=== PATIENT | female | born 1975 | race Hispanic/Latino ===

== ENCOUNTER → 2022-01-25 | Day surgery (SDC) | payer OTHER ==
[~2022-01-25] MED LIST: FENTANYL CITRATE/PF 100MCG/2 ML INJ ONE; HAIR VITAMIN1 EACH PO; LIDOCAINE HCL 2% LOCAL INJ 5 ML SDV VIAL INJ ONE; MIDAZOLAM HCL 2 MG/2 ML VIAL ONE; OMEPRAZOLE40 MG PO; PROPOFOL IV EMULSION 10 MG/ML 20 ML VIAL ONE; VITAMIN D400 UNIT PO
[2022-01-25 14:50] VITALS: BP 108/75
== END | disposition home or self-care (01) ==
LOC: OR 10:56
PROVIDERS: ATTEND Internal Medicine Gastroenterology
DX: K21.9 Gastro-esophageal reflux disease without esophagitis (principal); K29.50 Unspecified chronic gastritis without bleeding; K31.A12 Gastric intestinal metaplasia without dysplasia, involving the body (corpus); K44.9 Diaphragmatic hernia without obstruction or gangrene; K20.90 Esophagitis, unspecified without bleeding; K31.89 Other diseases of stomach and duodenum; K59.09 Other constipation; Z71.3 Dietary counseling and surveillance; J45.909 Unspecified asthma, uncomplicated; Z71.89 Other specified counseling; Z01.812 Encounter for preprocedural laboratory examination; Z20.822 Contact with and (suspected) exposure to COVID-19; Z68.27 Body mass index [BMI] 27.0-27.9, adult; Z86.16 Personal history of COVID-19
CPT/HCPCS: 43239; 81025; C9113; J2001; J2250; J2704; J3010; U0002

== ENCOUNTER 2023-03-10 09:43 | Emergency (ER) | payer OTHER ==
[~2023-03-10] VITALS: Ht 154.9 cm; Wt 63.5 kg
[~2023-03-10 09:43] MED LIST changes: -FENTANYL CITRATE/PF 100MCG/2 ML INJ ONE; -LIDOCAINE HCL 2% LOCAL INJ 5 ML SDV VIAL INJ ONE; -MIDAZOLAM HCL 2 MG/2 ML VIAL ONE; -PROPOFOL IV EMULSION 10 MG/ML 20 ML VIAL ONE
[2023-03-10] MEDS ORDERED: KETOROLAC TROMETHAMINE 30 MG/ML VIAL IV STA (10:17)
[2023-03-10] MEDS ORDERED: ONDANSETRON HCL INJ 2MG/ML 2ML 2 MG/ML VIAL IV STA (10:17)
[2023-03-10 10:27] LABS: BASOPHILS % 0.1 % (0.0-1.0); EOSINOPHILS # (AUTO) 0.1 (0.0-0.4); EOSINOPHILS % 0.5 % (0.0-6.0); HEMATOCRIT 41.5 % (34.2-44.1); HEMOGLOBIN 14.2 g/dL (12.0-16.0); LYMPHOCYTES # (AUTO) 2.4 (1.0-3.2); LYMPHOCYTES % 24.5 % (18.0-39.1); MEAN CORPUSCULAR HEMOGLOBIN 29.5 pg (28-32); MEAN CORPUSCULAR HGB CONC 34.2 g/dL (31-35); MEAN CORPUSCULAR VOLUME 86.1 fL (81-99); MONOCYTES # (AUTO) 0.9 (0.2-0.8); MONOCYTES % 8.9 % (4.4-11.3); NEUTROPHILS # (AUTO) 6.6 (2.1-6.9); NEUTROPHILS % 65.8 % (38.7-80.0); PLATELET COUNT 329 x10e3/uL (140-360); RED BLOOD COUNT 4.82 x10e6/uL (3.6-5.1); RED CELL DISTRIBUTION WIDTH 13.2 % (11.7-14.4)
[2023-03-10] MEDS ORDERED: SODIUM CHLORIDE 0.9% 1000ML 1,000 ML IV ONE (10:30)
[2023-03-10] MEDS ORDERED: Morphine 2mg Syringe 2 MG/ML SYR IV ONE (10:30)
[2023-03-10 10:32] LABS: CLARITY,URINE CLEAR (CLEAR); COLOR,URINE YELLOW (YELLOW); KETONES,URINE NEGATIVE (NEGATIVE); LEUKOCYTE ESTERASE ,URINE NEGATIVE (NEGATIVE); NITRITE,URINE NEGATIVE (NEGATIVE); PROTEIN,URINE DIPSTICK NEGATIVE (NEGATIVE); URINE UROBILINOGEN 0.2 mg/dL (0.2 - 1)
[2023-03-10 10:41] LABS: ALANINE AMINOTRANSFERASE 25 IU/L (0-55); ALBUMIN 4.1 g/dL (3.5-5.0); ALBUMIN/GLOBULIN RATIO 1.1 (0.8-2.0); ALKALINE PHOSPHATASE 90 IU/L (40-150); ANION GAP 12.5 mmol/L (8-16); BLOOD UREA NITROGEN 10 mg/dL (7-26); BUN/CREATININE RATIO 13 (6-25); CALCIUM 9.4 mg/dL (8.4-10.2); CARBON DIOXIDE 24 mmol/L (22-29); CHLORIDE 105 mmol/L (98-107); CREATININE, SERUM 0.78 mg/dL (0.57-1.11); GLUCOSE 106 mg/dL (74-118); POTASSIUM 3.5 mmol/L (3.5-5.1); SODIUM 138 mmol/L (136-145)
[2023-03-10 10:54] LABS: BACTERIA,URINE FEW /HPF; EPITHELIAL CELLS,URINE MODERATE /LPF; RBC,URINE 0-5 /HPF (0-5); WBC,URINE (MAN) 0-5 /HPF (0-5)
[2023-03-10 11:01] LABS: LIPASE 25 U/L (8-78)
[2023-03-10] MEDS ORDERED: ONDANSETRON ODT4 MG PO (13:04)
[2023-03-10 13:13] VITALS: BP 108/78; PULSE 66; RESP 16; O2SAT 100
== END 2023-03-10 13:10 | disposition home or self-care (01) ==
LOC: ER 10:02
DX: R10.11 Right upper quadrant pain (principal); R10.12 Left upper quadrant pain; R11.0 Nausea; R19.7 Diarrhea, unspecified
CPT/HCPCS: 36415; 74177; 80053; 81001; 83690; 84702; 85025; 99284; J1885; J2405; J7030